=== PATIENT | female | born 1945 | race Caucasian/White ===

== ENCOUNTER → 2017-06-27 | Outpatient (CLI) | payer OTHER | LOC: FIMAGING 10:21 | DX: E07.9 Disorder of thyroid, unspecified (principal) ==

== ENCOUNTER → 2017-07-10 | Outpatient (CLI) | payer OTHER | LOC: FIMAGING 09:34 | DX: E05.90 Thyrotoxicosis, unspecified without thyrotoxic crisis or storm (principal) | CPT/HCPCS: 78012; A9528 ==

== ENCOUNTER → 2018-06-30 | Outpatient (CLI) | payer OTHER | LOC: BMCIMAGING 08:38 | PROVIDERS: ATTEND Internal Medicine | DX: Z12.31 Encounter for screening mammogram for malignant neoplasm of breast (principal) ==

== ENCOUNTER → 2019-01-01 | Outpatient (CLI) | payer OTHER | LOC: BMCIMAGING 12:24 | PROVIDERS: ATTEND Internal Medicine | DX: M54.5 Low back pain (principal); M54.12 Radiculopathy, cervical region; Z98.1 Arthrodesis status ==

== ENCOUNTER → 2019-01-16 | Outpatient (CLI) | payer OTHER | LOC: FIMAGING 08:30 | PROVIDERS: ATTEND Neurological Surgery | DX: M43.8X6 Other specified deforming dorsopathies, lumbar region (principal); M51.36 Other intervertebral disc degeneration, lumbar region; M53.86 Other specified dorsopathies, lumbar region; J39.2 Other diseases of pharynx; M50.81 Other cervical disc disorders, high cervical region; M48.02 Spinal stenosis, cervical region ==

== ENCOUNTER 2019-03-10 05:44 | Inpatient (IN) | payer OTHER | END 2019-03-13 13:04 | LOC: F3N 05:44 → F2N 19:30 → F3N 03-11 14:30 ==